=== PATIENT | female | born 1950 | race Caucasian/White ===

== ENCOUNTER 2017-08-29 15:17 | Inpatient (IN) | payer OTHER ==
[~2017-08-29] VITALS: Ht 172.7 cm; Wt 75.9 kg
[~2017-08-29 15:17] MED LIST: ALLEGRA ALLERG180 MG PO; Levaquin PO; MOBIC15 MG PO; MOBIC7.5 MG PO; Nucynta PO; PRAVACHOL40 MG PO; PROzac PO; SELFEMRA20 MG PO; [UNRECOGNIZED DRUG - OTHER] PO
[2017-08-29 16:06] LABS: HEMATOCRIT 40.9 % (36.0-46.0); HEMOGLOBIN 14.4 G/DL (11.9-15.5); MCH 31.4 PG (29.0-34.0); MCHC 35.2 G/DL (30.0-36.0); MCV 89.1 FL (83-99); PLATELET COUNT 179 K/uL (156-360); RBC DIS.WIDTH-CV 12.1 % (11.8-14.6); RBC DIS.WIDTH-SD 39.8 % (39-53); RED BLOOD COUNT 4.59 M/uL (3.80-5.20); WHITE BLOOD COUNT 5.6 K/uL (4.1-10.2)
[2017-08-29 16:21] LABS: CHLORIDE 106 mEq/L (99-109); SODIUM 140 mEq/L (136-147)
[2017-08-29 16:23] LABS: GLUCOSE 130 mg/dL (70-99)
[2017-08-29 16:28] LABS: ALKALINE PHOSPHATASE 48 IU/L (3-129); CREATININE 0.7 mg/dL (0.6-1.3); GFR ESTIMATE (CALCULATED) > 59 mL/min/; TOTAL BILIRUBIN 0.3 mg/dL (0.0-1.0); UREA NITROGEN (BUN) 24 mg/dL (9-23)
[2017-08-29 16:29] LABS: AST (GOT) 28 IU/L (2-34)
[2017-08-29 16:30] LABS: ALT (GPT) 43 IU/L (3-49)
[2017-08-29 17:03] LABS: LIPASE 48 U/L (1.0-51.0)
[2017-08-29 17:12] LABS: TROP-I INTERPRETATION NEGATIVE; TROPONIN-I 0.02 ng/mL (0.0-0.30)
[2017-08-29] MEDS ORDERED: FLUOXETINE HCL20 MG PO (18:46)
[2017-08-29] MEDS ORDERED: MELOXICAM15 MG PO (18:46)
[2017-08-29] MEDS ORDERED: POTASSIUM-9999 MG PO (18:56)
[2017-08-29] MEDS ORDERED: SYSTANE GEL EYE10 ML BOTH EYES (18:58)
[2017-08-29] MEDS ORDERED: OMEGA 3-6-9 11200 MG PO (19:00)
[2017-08-29] MEDS ORDERED: MULTI-VITAMIN-1 EACH PO (19:01)
[2017-08-29] MEDS ORDERED: BAYER CHEWABLE81 MG PO (19:02)
[2017-08-29] MEDS ORDERED: PROBIOTIC1 EAC5 PO (19:05)
[2017-08-29] MEDS ORDERED: SUPER OMEGA-31000 MG PO (19:12)
[2017-08-29] MEDS ORDERED: CAL MAG ZINC +1 EAC1 PO (19:14)
[2017-08-29 23:12] VITALS: BP 129/60
[2017-08-30 03:50] VITALS: BP 110/60
[2017-08-30 07:48] LABS: HEMATOCRIT 39.1 % (36.0-46.0); MCHC 33.2 G/DL (30.0-36.0); MCV 90.3 FL (83-99); PLATELET COUNT 164 K/uL (156-360); RBC DIS.WIDTH-CV 12.2 % (11.8-14.6); RBC DIS.WIDTH-SD 40.7 % (39-53); RED BLOOD COUNT 4.33 M/uL (3.80-5.20); WHITE BLOOD COUNT 4.2 K/uL (4.1-10.2)
[2017-08-30 08:00] VITALS: BP 125/71
[2017-08-30 08:28] LABS: CHLORIDE 106 MEQ/L (99-109); CREATININE 0.5 MG/DL (0.6-1.3); GFR ESTIMATE (CALCULATED) > 59 mL/min/; POTASSIUM 3.8 MEQ/L (3.7-5.4); SODIUM 139 MEQ/L (136-147); UREA NITROGEN (BUN) 16 mg/dL (9-23)
[2017-08-30 08:38] LABS: GLUCOSE 89 mg/dL (70-99)
[2017-08-30 12:00] VITALS: BP 116/69
[2017-08-30 16:00] VITALS: BP 116/59
[2017-08-30 20:09] VITALS: BP 124/64
[2017-08-31 01:56] VITALS: BP 121/59
[2017-08-31 04:40] VITALS: BP 130/70
[2017-08-31 08:00] VITALS: BP 146/70
[2017-08-31 16:00] VITALS: BP 163/76
[2017-08-31 23:50] VITALS: BP 151/77
[2017-09-01 07:35] VITALS: BP 138/76
[2017-09-01 15:27] VITALS: BP 150/75
[2017-09-01 23:30] VITALS: BP 151/86
[2017-09-02 07:05] LABS: HEMATOCRIT 45.3 % (36.0-46.0); MCH 30.1 PG (29.0-34.0); MCHC 33.3 G/DL (30.0-36.0); MCV 90.2 FL (83-99); RBC DIS.WIDTH-CV 11.9 % (11.8-14.6); RBC DIS.WIDTH-SD 39.3 % (39-53); RED BLOOD COUNT 5.02 M/uL (3.80-5.20)
[2017-09-02 07:13] LABS: ALBUMIN 4.1 G/DL (3.2-4.8); CHLORIDE 108 MEQ/L (99-109); CREATININE 0.6 MG/DL (0.6-1.3); GFR ESTIMATE (CALCULATED) > 59 mL/min/; GLUCOSE 87 mg/dL (70-99); PHOSPHORUS 3.6 mg/dL (2.5-4.9); POTASSIUM 3.7 MEQ/L (3.7-5.4); SODIUM 143 MEQ/L (136-147); UREA NITROGEN (BUN) 6 mg/dL (9-23)
[2017-09-02 07:20] LABS: HEMOGLOBIN 15.1 G/DL (11.9-15.5); PLATELET COUNT 236 K/uL (156-360)
[2017-09-02 08:44] VITALS: BP 146/90
[2017-09-02 15:51] VITALS: BP 139/80
[2017-09-02 23:43] VITALS: BP 145/70
[2017-09-03 08:07] VITALS: BP 146/78
[2017-09-03 15:49] VITALS: BP 162/82
[2017-09-03 19:34] VITALS: BP 158/76
[2017-09-03 23:30] VITALS: BP 159/77
[2017-09-04 03:37] VITALS: BP 133/70
[2017-09-04 06:22] LABS: BASOPHIL (%) 0.1 % (0-1); EOSINOPHIL (%) 0 % (0-5); HEMATOCRIT 37.6 % (36.0-46.0); HEMOGLOBIN 13.3 G/DL (11.9-15.5); IMMATURE GRANULOCYTE (%) 0.4 % (0.0-0.7); LYMPHOCYTE (%) 5.6 % (15-42); LYMPHOCYTE COUNT 0.6 K/uL (1.0-2.8); MCH 31.3 PG (29.0-34.0); MCHC 35.4 G/DL (30.0-36.0); MCV 88.5 FL (83-99); MONOCYTE (%) 4.1 % (3-12); MONOCYTE COUNT 0.5 K/uL (0-0.8); NEUTROPHIL (%) 89.8 % (45-76); NEUTROPHIL COUNT 9.9 K/uL (1.8-6.4); PLATELET COUNT 211 K/uL (156-360); RBC DIS.WIDTH-CV 11.8 % (11.8-14.6); RBC DIS.WIDTH-SD 37.7 % (39-53); RED BLOOD COUNT 4.25 M/uL (3.80-5.20); WHITE BLOOD COUNT 11.1 K/uL (4.1-10.2)
[2017-09-04 06:51] LABS: CHLORIDE 103 MEQ/L (99-109); CREATININE 0.5 MG/DL (0.6-1.3); GFR ESTIMATE (CALCULATED) > 59 mL/min/; GLUCOSE 137 mg/dL (70-99); POTASSIUM 3.6 MEQ/L (3.7-5.4); SODIUM 139 MEQ/L (136-147); UREA NITROGEN (BUN) 11 mg/dL (9-23)
[2017-09-04 07:22] VITALS: BP 142/78
[2017-09-04 11:07] VITALS: BP 136/72
[2017-09-04 15:53] VITALS: BP 124/64
[2017-09-04 19:39] VITALS: BP 135/71
[2017-09-04 23:04] VITALS: BP 119/58
[2017-09-05 04:05] VITALS: BP 130/70
[2017-09-05 06:00] LABS: BASOPHIL (%) 0.3 % (0-1); EOSINOPHIL (%) 1.4 % (0-5); EOSINOPHIL COUNT 0.1 K/uL (0-0.3); HEMATOCRIT 34.7 % (36.0-46.0); HEMOGLOBIN 11.6 G/DL (11.9-15.5); IMMATURE GRANULOCYTE (%) 0.2 % (0.0-0.7); LYMPHOCYTE (%) 15.1 % (15-42); MCH 30.1 PG (29.0-34.0); MCHC 33.4 G/DL (30.0-36.0); MCV 89.9 FL (83-99); MONOCYTE (%) 6.3 % (3-12); MONOCYTE COUNT 0.4 K/uL (0-0.8); NEUTROPHIL (%) 76.7 % (45-76); PLATELET COUNT 181 K/uL (156-360); RBC DIS.WIDTH-CV 11.9 % (11.8-14.6); RED BLOOD COUNT 3.86 M/uL (3.80-5.20); WHITE BLOOD COUNT 6.5 K/uL (4.1-10.2)
[2017-09-05 06:29] LABS: CHLORIDE 105 MEQ/L (99-109); CREATININE 0.5 MG/DL (0.6-1.3); GFR ESTIMATE (CALCULATED) > 59 mL/min/; GLUCOSE 92 mg/dL (70-99); SODIUM 141 MEQ/L (136-147); UREA NITROGEN (BUN) 12 mg/dL (9-23)
[2017-09-05 07:13] VITALS: BP 118/68
[2017-09-05 11:10] VITALS: BP 138/78
[2017-09-05 15:30] VITALS: BP 140/77
[2017-09-05 23:59] VITALS: BP 150/70
[2017-09-06 07:32] VITALS: BP 141/86
== END 2017-09-06 14:51 | disposition home or self-care (01) | DRG 330 ==
LOC: EME 15:17 → 2EAST 21:10 → EDOF 21:10 → ENRESERV 21:13 → 2EAST 22:59
PROVIDERS: Internal Medicine Gastroenterology; Nurse Practitioner Family; Physician Assistant; Student in an Organized Health Care Education/Training Program
DX: K56.2 Volvulus (principal); K80.10 Calculus of gallbladder with chronic cholecystitis without obstruction; K66.0 Peritoneal adhesions (postprocedural) (postinfection); K40.90 Unilateral inguinal hernia, without obstruction or gangrene, not specified as recurrent; I10 Essential (primary) hypertension; E78.5 Hyperlipidemia, unspecified; F32.9 Major depressive disorder, single episode, unspecified; K64.8 Other hemorrhoids; M19.90 Unspecified osteoarthritis, unspecified site; Z86.73 Personal history of transient ischemic attack (TIA), and cerebral infarction without residual deficits
CPT/HCPCS: 74177; 80048; 80053; 80069; 81003; 83690; 84484; 85025; 85027; 88304; 88307; 93005; 99281; 99285; J0131; J1100; J1170; J1650; J2405; J2710; J3010; J3480; J7030; J7120; S0020; S0074

== ENCOUNTER 2018-01-06 05:37 | Day surgery (SDC) | payer OTHER ==
[~2018-01-06] VITALS: Ht 172.7 cm; Wt 76.2 kg
[~2018-01-06 05:37] MED LIST changes: +BAYER CHEWABLE81 MG PO; +CAL MAG ZINC +1 EAC1 PO; +FLUOXETINE HCL20 MG PO; +MELOXICAM15 MG PO; +MULTI-VITAMIN-1 EACH PO; +OMEGA 3-6-9 11200 MG PO; +POTASSIUM-9999 MG PO; +PROBIOTIC1 EAC1 PO; +PROBIOTIC1 EAC5 PO; +PROZAC20 MG PO; +SUPER OMEGA-31000 MG PO; +SYSTANE GEL EYE10 ML BOTH EYES
[2018-01-06 06:46] VITALS: BP 113/67
[2018-01-06 06:48] VITALS: BP 113/67
[2018-01-06] MEDS ORDERED: HYDROCODON-ACE1 EAC7 PO (09:27)
[2018-01-06 11:20] VITALS: BP 139/54
[2018-01-06 12:20] VITALS: BP 124/56
[2018-01-06 13:18] VITALS: BP 120/56
== END 2018-01-06 13:25 | disposition home or self-care (01) ==
LOC: SDC 05:37
DX: K40.90 Unilateral inguinal hernia, without obstruction or gangrene, not specified as recurrent (principal); K43.2 Incisional hernia without obstruction or gangrene; I10 Essential (primary) hypertension; Z88.5 Allergy status to narcotic agent; Z88.8 Allergy status to other drugs, medicaments and biological substances; Z86.73 Personal history of transient ischemic attack (TIA), and cerebral infarction without residual deficits; Z79.82 Long term (current) use of aspirin
CPT/HCPCS: C1781; J0131; J0690; J1100; J1170; J2405; J2710; J3010; J7643